=== PATIENT | male | born 1955 | race Caucasian/White ===

== ENCOUNTER 2021-09-27 10:51 | Day surgery (SDC) | payer MEDICARE ==
[2021-09-23 12:36] LABS: BASOPHILS # (AUTO) 0.1 X10'3 (0-0.2); BASOPHILS % (AUTO) 0.9 % (0-1); EOSINOPHILS # (AUTO) 0.2 X10'3 (0-0.9); EOSINOPHILS % (AUTO) 2.3 % (0-6); HEMATOCRIT 42.7 % (42.0-52.0); HEMOGLOBIN 14.6 g/dl (14.0-17.9); LYMPHOCYTES # (AUTO) 1.4 X10'3 (1.1-4.8); MEAN CORPUSCULAR HEMOGLOBIN 35.6 PG (27.0-31.0); MEAN CORPUSCULAR HGB CONC 34.2 g/dL (33.0-36.5); MEAN CORPUSCULAR VOLUME 104.2 FL (78-98); MEAN PLATELET VOLUME 7.5 FL (7.4-10.4); MONOCYTES # (AUTO) 0.7 X10'3 (0-0.9); MONOCYTES % (AUTO) 7.2 % (2-12); NEUTROPHILS # (AUTO) 7.5 X10'3 (1.8-7.7); NEUTROPHILS % (AUTO) 75.6 % (42-75); PLATELET COUNT 248 X10'3 (140-440); RED CELL DISTRIBUTION WIDTH 14.6 % (11.5-14.5); WHITE BLOOD COUNT 9.9 X10'3 (4.5-11.0)
[2021-09-23 12:42] LABS: ANION GAP 10 (8-16); BLOOD UREA NITROGEN 9 MG/DL (7-18); BUN/CREATININE RATIO 6.5 (5.4-32.0); CALCIUM 9.5 MG/DL (8.5-10.1); CHLORIDE 103 MMOL/L (99-107); CREATININE 1.39 MG/DL (0.60-1.10); GLUCOSE 88 MG/DL (70-104); POTASSIUM 4.1 MMOL/L (3.5-5.1); SODIUM 142 MMOL/L (135-145); TOTAL CARBON DIOXIDE 28.6 MMOL/L (24-32); eGFR 51 ML/MIN
[2021-09-23 12:44] LABS: APTT 31 SECONDS (22-32)
[2021-09-27] VITALS (12 sets, daily range): BP systolic 119–168; BP diastolic 75–94
[~2021-09-27] VITALS: Ht 170.2 cm; Wt 68.9 kg
[2021-09-27] MEDS ORDERED: ATOR20TA66 PO (11:18)
[2021-09-27] MEDS ORDERED: APIX5TAB3 PO (11:18)
[2021-09-27] MEDS ORDERED: AMIO200T61 PO (11:18)
[2021-09-27] MEDS ORDERED: METO-384 PO (11:18)
[2021-09-27] MEDS ORDERED: AMLO10TA13 PO (11:18)
[2021-09-27] MEDS ORDERED: fentaNYL/PF 50MCG/1 ML 2ML syringe IV ONE (11:20)
[2021-09-27] MEDS ORDERED: normal saline 1000ml 1,000 ML IV SCH (11:20)
[2021-09-27] MEDS ORDERED: MIDAZolam 1mg/ml 10ml vial IV ONE (11:20)
== END 2021-09-27 15:10 | disposition home or self-care (01) ==
LOC: SSTAY O 10:51
PROVIDERS: ATTEND Internal Medicine Interventional Cardiology
DX: I48.91 Unspecified atrial fibrillation (principal); I10 Essential (primary) hypertension; I45.10 Unspecified right bundle-branch block; I35.1 Nonrheumatic aortic (valve) insufficiency; E78.49 Other hyperlipidemia; G47.10 Hypersomnia, unspecified; Z79.01 Long term (current) use of anticoagulants; Z79.899 Other long term (current) drug therapy
CPT/HCPCS: 36415; 80048; 85025; 85610; 85730; 92960; 93005; J2250; J3010; J7030

== ENCOUNTER 2024-07-07 06:27 | Day surgery (SDC) | payer MEDICARE ==
[2024-06-30 13:53] LABS: BASOPHILS % (AUTO) 0.4 % (0-1); EOSINOPHILS # (AUTO) 0.2 X10'3 (0-0.9); EOSINOPHILS % (AUTO) 2.6 % (0-6); LYMPHOCYTES # (AUTO) 1.6 X10'3 (1.1-4.8); LYMPHOCYTES % (AUTO) 20.1 % (21-51); MEAN CORPUSCULAR HEMOGLOBIN 33.9 PG (27.0-31.0); MEAN CORPUSCULAR HGB CONC 34.2 g/dL (33.0-36.5); MEAN CORPUSCULAR VOLUME 99.3 FL (78-98); MEAN PLATELET VOLUME 8.3 FL (7.4-10.4); MONOCYTES # (AUTO) 0.6 X10'3 (0-0.9); MONOCYTES % (AUTO) 7.6 % (2-12); NEUTROPHILS # (AUTO) 5.4 X10'3 (1.8-7.7); NEUTROPHILS % (AUTO) 69.3 % (42-75); PRE OP HEMATOCRIT 49.1 % (42.0-52.0); PRE OP HEMOGLOBIN 16.8 g/dL (14.0-17.9); PRE OP PLATELET COUNT 193 X10'3 (140-440); PRE OP WHITE BLOOD COUNT 7.8 10'3 (4.8-10.8); RED BLOOD COUNT 4.94 X10'6 (4.70-6.10); RED CELL DISTRIBUTION WIDTH 16.8 % (11.5-14.5)
[2024-06-30 14:07] LABS: ALBUMIN 3.7 G/DL (3.4-5.0); ALBUMIN/GLOBULIN RATIO 0.9 (1.1-1.5); ALKALINE PHOSPHATASE 75 IU/L (46-116); BLOOD UREA NITROGEN 10 MG/DL (7-18); BUN/CREATININE RATIO 6.8 (10.0-20.0); CALCIUM 9.3 MG/DL (8.5-10.1); CHLORIDE 97 MMOL/L (99-107); CREATININE 1.47 MG/DL (0.60-1.10); PRE OP ALT 11 U/L (30-65); PRE OP ANION GAP 9 (8-16); PRE OP AST 19 U/L (10-37); PRE OP GLUCOSE 101 MG/DL (70-104); PRE OP POTASSIUM 4.2 MMOL/L (3.4-5.1); PRE OP SODIUM 133 MMOL/L (135-145); TOTAL CARBON DIOXIDE 27.4 MMOL/L (24-32); eGFR 47 ML/MIN
[2024-07-07] VITALS (12 sets, daily range): BP systolic 117–148; BP diastolic 70–90; PULSE 58–82; RESP 12–16; TEMP 97.9; O2SAT 94–100
[~2024-07-07] VITALS: Ht 170.2 cm; Wt 61.0 kg
[~2024-07-07 06:27] MED LIST: AMLO10TA13 PO; APIX5TAB3 PO; ATOR20TA66 PO; FLEC50TA PO; FURO40TA4 PO; LEVO75TA7 PO; OMEP20CA16 PO; POTA-366 PO
[2024-07-07] MEDS ORDERED: LIDOcaine 2% (20mg/ml) 5ml vial ONE (06:48)
[2024-07-07] MEDS ORDERED: BUPIVAcaine/PF 2.5mg/ml (0.25%) 10ml vial ONE (06:49)
[2024-07-07] MEDS: famotidine 20mg tablet PO ONE (07:14)
[2024-07-07] MEDS: ringers solution, lacted 1,000 ML IV SCH (07:15)
[2024-07-07] MEDS: ceFAZolin 2gm in dextrose, iso 50 ML IV ONE (07:15)
[2024-07-07] MEDS ORDERED: midazolam 1 mg/ML 2ml injection ONE (08:42)
[2024-07-07] MEDS ORDERED: ceFAZolin 1000mg inj ONE (08:42)
[2024-07-07] MEDS ORDERED: LIDOcaine 0.5% (5mg/ml) 50ml vial ONE (08:43)
[2024-07-07] MEDS ORDERED: ringers solution, lacted 1,000 ML IV SCH ×2 (09:00)
[2024-07-07] MEDS ORDERED: proCHLORperazine 10 MG/2 ml inj IV PRN (09:00)
[2024-07-07] MEDS ORDERED: labetalol 20mg/4ml (5mg/ml) syringe IV PRN (09:00)
[2024-07-07] MEDS ORDERED: meperidine/PF 25mg/ml syringe IV PRN ×2 (09:00)
[2024-07-07] MEDS ORDERED: HYDROmorphone/PF 0.2 MG/ML SYRINGE IV PRN ×2 (09:00)
[2024-07-07] MEDS ORDERED: ketorolac trometh 30MG/ML vial 30 MG/ML VIAL ONE (09:05)
[2024-07-07] MEDS ORDERED: meperidine/PF 25mg/ml syringe ONE (09:06)
[2024-07-07] MEDS: oxyCODONE/APAP 5-325mg tablet PO ONE (12:07)
== END 2024-07-07 12:26 | disposition home or self-care (01) ==
LOC: PAS 06:27
PROVIDERS: ATTEND Orthopaedic Surgery Hand Surgery
DX: M72.0 Palmar fascial fibromatosis [Dupuytren] (principal); I45.10 Unspecified right bundle-branch block; I10 Essential (primary) hypertension; E78.5 Hyperlipidemia, unspecified; K21.9 Gastro-esophageal reflux disease without esophagitis; I48.91 Unspecified atrial fibrillation; E03.9 Hypothyroidism, unspecified; G43.909 Migraine, unspecified, not intractable, without status migrainosus; F41.9 Anxiety disorder, unspecified; F32.A Depression, unspecified; Z79.01 Long term (current) use of anticoagulants; Z79.890 Hormone replacement therapy; Z79.899 Other long term (current) drug therapy; Z98.890 Other specified postprocedural states
CPT/HCPCS: 26123; 26125; 36415; 80053; 82948; 85025; 93005; A4215; A4618; A6449; A7000; J0690; J1885; J2003; J2175; J2250; J7030; J7120; Z7506; Z7508; Z7512; Z7610; J3490